=== PATIENT | male | born 2000 | race Hispanic/Latino ===

== ENCOUNTER 2019-04-28 18:00 | Emergency (ER) | payer SELFPAY ==
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
--- NOTE | 2019-04-28 19:52 | RAD REPORT ---
EXAM DESCRIPTION: RAD - Forearm Right - 04/28/2019 7:44 pm CLINICAL HISTORY: PAIN Trauma, pain COMPARISON: No comparisons FINDINGS: No acute fracture or dislocation seen.
--- NOTE | 2019-04-28 19:53 | RAD REPORT ---
EXAM DESCRIPTION: RAD - Hand Right 3 View - 04/28/2019 7:44 pm CLINICAL HISTORY: PAIN Trauma, pain COMPARISON: No comparisons FINDINGS: No acute fracture or dislocation is evident.
[2019-04-29 01:51] VITALS: BP 140/77; TEMP 97.9; O2SAT 98
== END 2019-04-28 19:52 | disposition home or self-care (01) ==
LOC: ER 18:00
DX: S60.221A Contusion of right hand, initial encounter (principal); W51.XXXA Accidental striking against or bumped into by another person, initial encounter; Y93.9 Activity, unspecified; Y92.9 Unspecified place or not applicable; Z72.0 Tobacco use
CPT/HCPCS: 99283